=== PATIENT | male | born 1970 | race African-American/Black ===

== ENCOUNTER 2017-01-29 13:58 | Emergency (ER) | payer BC, SELFPAY ==
[2017-01-29 14:51] LABS: #Basophils 0.1 thou/uL (0.0-0.2); #Eosinphils 0.6 thou/uL (0.0-0.7); #Lymphocytes 1.9 thou/uL (1.20-3.40); #Monocytes 0.4 thou/uL (0.11-0.59); %Basophils 1.4 % (0.0-1.0); %Lymphocytes 27.2 % (21.0-51.0); %Monocytes 6.2 % (0.0-10.0); Hematocrit 41.1 % (42.0-52.0); Red Blood Cell (RBC) Count 4.22 mill/uL (4.70-6.10)
[2017-01-29 15:19] LABS: ALT (SGPT) 27 U/L (8-55); AST (SGOT) 33 U/L (5-34); Alkaline Phosphatase 83 U/L (40-150); Anion Gap 15 mmol/L (10-20); BUN (Urea Nitrogen) 14 mg/dL (8.9-20.6); Bilirubin, Total 0.5 mg/dL (0.2-1.2); CK (CPK) 1354 U/L (30-200); Calc. Creatinine Clearance 0 mL/min (70-130); Calcium 9.1 mg/dL (7.8-10.44); Carbon Dioxide 23 mmol/L (22-29); Chloride 105 mmol/L (98-107); Estimated GFR-MDRD 88; Globulin 3.8 g/dL (2.4-3.5); Protein, Total 7.8 g/dL (6.0-8.3)
[2017-01-29 15:22] LABS: Troponin I Less than 0.010 ng/mL (< 0.028)
[2017-01-29] MEDS ORDERED: Nitroglycerin 2% Ointment 1 INCH/1 GM Packet ONE (15:35)
--- NOTE | 2017-01-29 15:38 | RAD ---
CHEST 1 VIEW: Date: 01/29/17 HISTORY: Chest pain. COMPARISON: Chest 1 view dated 10/25/13. FINDINGS: Heart size is upper limits of normal. No focal air space consolidation, pneumothorax, or effusion. N o acute osseous abnormality. IMPRESSION: Mild cardiomegaly. POS: [facility]
--- NOTE | 2017-02-07 16:41 | EKG ---
Test Reason : Blood Pressure : / mmHG Vent. Rate : 081 BPM Atrial Rate : 081 BPM P-R Int : 196 ms QRS Dur : 086 ms QT Int : 378 ms P-R-T Axes : 055 023 -08 degrees QTc Int : 439 ms Normal sinus rhythm Normal ECG Confirmed by FREDIS MALIK, MICHELLE ([id number]), deputy editor in chief RALPH JI ([id number] on 02/07/2017 4:41:42 PM Referred By: Confirmed By:MICHELLE MCNEAL MD
== END 2017-01-29 17:27 | disposition home or self-care (01) ==
LOC: ERS 13:58
DX: R07.89 Other chest pain (principal); I10 Essential (primary) hypertension; J45.909 Unspecified asthma, uncomplicated
CPT/HCPCS: 71010; 80053; 82550; 82553; 83880; 84484; 85025; 93005

== ENCOUNTER 2017-02-23 04:32 | Emergency (ER) | payer SELFPAY ==
[2017-02-23] MEDS ORDERED: Acetaminophen 500 MG TAB ONE (05:23)
== END 2017-02-23 05:55 | disposition left against medical advice (07) ==
LOC: ERS 04:32
DX: Z53.21 Procedure and treatment not carried out due to patient leaving prior to being seen by health care provider (principal)

== ENCOUNTER 2017-09-18 13:42 | Emergency (ER) | payer SELFPAY ==
--- NOTE | 2017-09-18 14:57 | RAD ---
4 VIEWS LEFT ELBOW: Date: 09/18/17 COMPARISON: None. HISTORY: Left elbow pain after injuring it at work on Thursday. FINDINGS: Four views of the left elbow show no evidence of acute fracture or dislocation. Posterior soft tissue swelling is seen along the distal humerus. There may be air in this location. No degenerative change s are seen. No elbow effusion is present. IMPRESSION: Possible subcutaneous air in the soft tissues dorsal to the humerus. Correlate with an open wound in this location. POS: [facility]
== END 2017-09-18 14:50 | disposition home or self-care (01) ==
LOC: ERS 13:42
DX: M77.9 Enthesopathy, unspecified (principal); I10 Essential (primary) hypertension; J45.909 Unspecified asthma, uncomplicated
CPT/HCPCS: 99283

== ENCOUNTER 2018-11-08 06:04 | Emergency (ER) | payer SELFPAY ==
--- NOTE | 2018-11-08 07:44 | ULT ---
ULTRASOUND WITH DOPPLER DUPLEX VENOUS LOWER EXTREMITY LEFT: CPT: 06831 ICD-10-PCS: [id number] HISTORY: Pain. TECHNIQUE: Color flow Doppler, spectral waveform analysis of pulsed Doppler, and jarvis-scale imaging with lesa christoph and augmentation, were used to evaluate the bilateral common femoral, femoral, popliteal, highway design engineer ior tibial, and superficial femoral, veins; and the proximal portions of the profunda femoral and gre ater saphenous, veins. FINDINGS: There is appropriate compressibility and flow within the imaged deep vein system of the left lower ex tremity. IMPRESSION: No deep vein thrombosis. POS: [facility]
--- NOTE | 2018-11-08 08:53 | RAD ---
FOUR VIEWS LEFT KNEE: COMPARISON: 02/03/2013. HISTORY: Left knee pain and swelling. FINDINGS: Four views of the left knee show no evidence of acute fracture or dislocation. Moderate tricompartme ntal joint space narrowing and osteophyte formation is seen consistent with osteoarthritis. There is a small knee effusion. IMPRESSION: Moderate left osteoarthritis without acute osseous abnormality. POS: [facility]
== END 2018-11-08 07:31 | disposition home or self-care (01) ==
LOC: ERS 06:04
DX: M79.605 Pain in left leg (principal); I10 Essential (primary) hypertension; J45.909 Unspecified asthma, uncomplicated; F17.210 Nicotine dependence, cigarettes, uncomplicated; E11.9 Type 2 diabetes mellitus without complications; J44.9 Chronic obstructive pulmonary disease, unspecified; Z71.6 Tobacco abuse counseling
CPT/HCPCS: 99406

== ENCOUNTER 2019-09-07 06:32 | Emergency (ER) | payer OTHER, SELFPAY ==
[2019-09-07] MEDS ORDERED: Ibuprofen 800 MG TAB ONE (07:24)
== END 2019-09-07 07:35 | disposition home or self-care (01) ==
LOC: ERS 06:32
DX: J01.90 Acute sinusitis, unspecified (principal); H10.9 Unspecified conjunctivitis; E11.9 Type 2 diabetes mellitus without complications; I10 Essential (primary) hypertension; J44.9 Chronic obstructive pulmonary disease, unspecified
CPT/HCPCS: 36416; 87635; 99284; U0003

== ENCOUNTER 2021-10-30 06:03 | Emergency (ER) | payer SELFPAY | END 2021-10-30 07:40 | disposition home or self-care (01) | LOC: ERS 06:03 | DX: S39.012A Strain of muscle, fascia and tendon of lower back, initial encounter (principal); I10 Essential (primary) hypertension; X50.0XXA Overexertion from strenuous movement or load, initial encounter; Y93.F2 Activity, caregiving, lifting; Y92.65 Oil rig as the place of occurrence of the external cause | CPT/HCPCS: 99282 ==

== ENCOUNTER 2022-08-09 18:50 | Emergency (ER) | payer OTHER, SELFPAY ==
[2022-08-09 19:43] LABS: #Basophils 0.1 thou/uL (0.0-0.2); #Eosinphils 0.3 thou/uL (0.0-0.7); #Monocytes 0.5 thou/uL (0.11-0.59); #Neutrophils 4.6 thou/uL (1.40-6.50); %Basophils 0.8 % (0.0-1.0); %Eosinophils 4.1 % (0.0-10.0); %Lymphocytes 28.8 % (21.0-51.0); %Monocytes 6.8 % (0.0-10.0); Hemoglobin 12.9 g/dL (14.0-18.0); Mean Corpuscular HGB CONC 31.5 g/dL (32.0-36.0); Mean Corpuscular Hemoglobin 30.2 pg (27.0-31.0); Mean Corpuscular Volume 95.8 fl (78.0-98.0); Mean Platelet Volume 10.2 fL (7.4-10.4); Platelet Count 291 10x3/uL (130-400); RBC Distribution Width 13.1 % (11.5-14.5); Red Blood Cell (RBC) Count 4.27 mill/uL (4.70-6.10); White Blood Cell (WBC) Count 7.8 10x3/uL (4.8-10.8)
[2022-08-09] MEDS ORDERED: hydrALAZINE 20 MG/ML VIAL ONE (19:48)
[2022-08-09 20:06] LABS: ALT (SGPT) 15 U/L (8-55); AST (SGOT) 22 U/L (5-34); Albumin 4.1 g/dL (3.5-5.0); Alkaline Phosphatase 99 U/L (40-110); Anion Gap 14 mmol/L (10-20); BUN (Urea Nitrogen) 18 mg/dL (8.4-25.7); Bilirubin, Total 0.2 mg/dL (0.2-1.2); CK (CPK) 486 U/L (30-200); Calc. Creatinine Clearance 0 mL/min (70-130); Calcium 9.4 mg/dL (7.8-10.44); Carbon Dioxide 26 mmol/L (22-29); Chloride 104 mmol/L (98-107); Estimated GFR 43; Globulin 3.9 g/dL (2.4-3.5); Glucose 111 mg/dL (70-105); Potassium 3.9 mmol/L (3.5-5.1); Sodium 140 mmol/L (136-145)
[2022-08-09] MEDS ORDERED: Acetaminophen 500 MG TAB ONE (21:26)
== END 2022-08-09 21:31 | disposition home or self-care (01) ==
LOC: ERS 18:50
DX: I10 Essential (primary) hypertension (principal)
CPT/HCPCS: 71045; 80053; 82550; 83880; 84484; 85025; 93005; 96374; J0360

== ENCOUNTER 2023-03-03 19:55 | Emergency (ER) | payer OTHER ==
[2023-03-03] MEDS ORDERED: HYDROcodone/Acetaminophen 5/325 mg Tablet ONE (20:26)
[2023-03-03] MEDS ORDERED: Ketorolac Tromethamine 30 MG/ML VIAL ONE (20:26)
== END 2023-03-03 20:48 | disposition home or self-care (01) ==
LOC: ERS 19:55
DX: K43.9 Ventral hernia without obstruction or gangrene (principal); I10 Essential (primary) hypertension; Z79.899 Other long term (current) drug therapy
CPT/HCPCS: 96372; 99283; J1885

== ENCOUNTER 2023-05-02 03:53 | Emergency (ER) | payer OTHER | END 2023-05-02 05:08 | LOC: ERS 03:53 | DX: I10 Essential (primary) hypertension (principal); Z79.899 Other long term (current) drug therapy | CPT/HCPCS: 99283 ==

== ENCOUNTER 2023-08-17 18:53 | Emergency (ER) | payer OTHER ==
[2023-08-17] MEDS ORDERED: Ketorolac Tromethamine 30 MG (1 mL) VIAL ONE (19:45)
[2023-08-17 20:22] LABS: #Basophils 0.06 10x3/uL (0.0-0.2); %Basophils 0.7 % (0.0-1.0); %Eosinophils 4.3 % (0.0-10.0); %Lymphocytes 30.2 % (21.0-51.0); %Monocytes 9.5 % (0.0-10.0); %Neutrophils 54.8 % (42.0-75.0); Hematocrit 40.8 % (42.0-52.0); Hemoglobin 13.1 g/dL (14.0-18.0); Mean Corpuscular HGB CONC 32.1 g/dL (32.0-36.0); Mean Corpuscular Hemoglobin 30.5 pg (27.0-31.0); Mean Corpuscular Volume 95.1 fL (78.0-98.0); Mean Platelet Volume 10.2 fL (7.4-10.4); Platelet Count 288 10x3/uL (130-400); RBC Distribution Width 13.1 % (11.5-14.5); Red Blood Cell (RBC) Count 4.29 mill/uL (4.70-6.10)
[2023-08-17 20:43] LABS: ALT (SGPT) 13 U/L (8-55); AST (SGOT) 16 U/L (5-34); Albumin 3.2 g/dL (3.5-5.0); Alkaline Phosphatase 73 U/L (40-110); Anion Gap 12 mmol/L (10-20); BUN (Urea Nitrogen) 21 mg/dL (8.4-25.7); Bilirubin, Total 0.4 mg/dL (0.2-1.2); Calc. Creatinine Clearance 0 mL/min (70-130); Calcium 8.9 mg/dL (7.8-10.44); Carbon Dioxide 31 mmol/L (22-29); Chloride 105 mmol/L (98-107); Estimated GFR 61; Globulin 2.8 g/dL (2.4-3.5); Glucose 92 mg/dL (70-105); Lipase 69 U/L (8-78); Sodium 144 mmol/L (136-145)
[2023-08-17 22:13] LABS: Bacteria/HPF None Seen HPF (None Seen); Bilirubin Negative (Negative); Blood, Urine Negative (Negative); CAUTI Indications for Culture Pelvic or flank pain; Clarity Clear (Clear); Glucose, Urine (Dipstick) Normal (Negative); Ketone, Urine Negative (Negative); Leukocyte Negative Leu/uL (Negative); Nitrite Negative (Negative); Protein, Urine (Dipstick) Negative (Neg-Trace); RBC/HPF 0-3 HPF (0-3); Specific Gravity, Urine 1.023 (1.002-1.036); Squamous Epithelial 0-3 HPF (0-3); Urobilinogen Normal mg/dL (Less than 2); WBC/HPF 0-3 HPF (0-3); pH, Urine 6.5 (5.0-9.0)
[2023-08-17 22:17] LABS: Urine Culture Reflex No No
== END 2023-08-17 22:45 | disposition home or self-care (01) ==
LOC: ERS 18:53
DX: M25.512 Pain in left shoulder (principal); M54.6 Pain in thoracic spine; K43.9 Ventral hernia without obstruction or gangrene; I10 Essential (primary) hypertension
CPT/HCPCS: 36415; 80053; 81001; 83605; 83690; 85025; 96372; 99284; J1885

== ENCOUNTER 2023-12-31 06:20 | Emergency (ER) | payer OTHER ==
[2023-12-31] MEDS ORDERED: Acetaminophen 500 MG TAB ONE (06:42)
== END 2023-12-31 06:52 | disposition home or self-care (01) ==
LOC: ERS 06:20
DX: I10 Essential (primary) hypertension (principal)
CPT/HCPCS: 99283

== ENCOUNTER 2024-05-06 15:54 | Emergency (ER) | payer OTHER ==
[2024-05-06 16:17] LABS: #Basophils 0.06 10x3/uL (0.0-0.2); %Basophils 0.7 % (0.0-1.0); %Eosinophils 4.1 % (0.0-10.0); %Lymphocytes 25.3 % (21.0-51.0); %Monocytes 6.8 % (0.0-10.0); %Neutrophils 62.5 % (42.0-75.0); Hematocrit 41.6 % (42.0-52.0); Hemoglobin 12.9 g/dL (14.0-18.0); Mean Corpuscular Volume 96.7 fL (78.0-98.0); Mean Platelet Volume 9.8 fL (7.4-10.4); Platelet Count 264 10x3/uL (130-400); RBC Distribution Width 12.9 % (11.5-14.5)
[2024-05-06 16:30] LABS: PTT 25.4 sec (22.9-36.1)
[2024-05-06 16:35] LABS: ALT (SGPT) 14 U/L (Less than 45); AST (SGOT) 29 U/L (11-34); Albumin 3.8 g/dL (3.1-4.5); Alkaline Phosphatase 86 U/L (40-110); Anion Gap 15 mmol/L (10-20); BUN (Urea Nitrogen) 15 mg/dL (8.4-25.7); Bilirubin, Total 0.3 mg/dL (0.3-1.2); Calc. Creatinine Clearance 0 mL/min (70-130); Carbon Dioxide 27 mmol/L (22-29); Chloride 105 mmol/L (98-107); Estimated GFR 64; Globulin 3.7 g/dL (2.4-3.5); Glucose 104 mg/dL (70-105); Potassium 3.7 mmol/L (3.5-5.1); Protein, Total 7.5 g/dL (6.0-8.3); Sodium 143 mmol/L (136-145)
[2024-05-06 16:38] LABS: Troponin I 0.024 ng/mL (< 0.028)
[2024-05-06] MEDS ORDERED: Morphine 4 MG/ML VIAL ONE (16:39)
[2024-05-06] MEDS ORDERED: HYDROcodone/Acetaminophen 5/325 mg Tablet ONE (20:00)
== END 2024-05-06 20:06 | disposition home or self-care (01) ==
LOC: ERS 15:54
DX: S89.92XA Unspecified injury of left lower leg, initial encounter (principal); M54.50 Low back pain, unspecified; M17.12 Unilateral primary osteoarthritis, left knee; I10 Essential (primary) hypertension; V57.5XXA Driver of pick-up truck or van injured in collision with fixed or stationary object in traffic accident, initial encounter; Y93.89 Activity, other specified; Z55.6 Problems related to health literacy
CPT/HCPCS: 36415; 70450; 71045; 71260; 72125; 74177; 80053; 84484; 85025; 85610; 85730; 86850; 86900; 86901; 93005; 96374; J2270

== ENCOUNTER 2024-11-17 15:24 | Emergency (ER) | payer OTHER, SELFPAY ==
[2024-11-17] MEDS ORDERED: Acetaminophen 500 MG TAB ONE (16:52)
[2024-11-17] MEDS ORDERED: Ketorolac Tromethamine 30 MG (1 mL) VIAL ONE (16:52)
[2024-11-17 17:07] LABS: #Basophils 0.04 10x3/uL (0.0-0.2); #Eosinophils 0.24 10x3/uL (0.0-0.7); #Monocytes 0.48 10x3/uL (0.11-0.59); #Neutrophils 4.48 10x3/uL (1.40-6.50); %Basophils 0.6 % (0.0-1.0); %Eosinophils 3.6 % (0.0-10.0); %Lymphocytes 21.9 % (21.0-51.0); %Monocytes 7.1 % (0.0-10.0); %Neutrophils 66.4 % (42.0-75.0); Hematocrit 43.3 % (42.0-52.0); Hemoglobin 13.4 g/dL (14.0-18.0); Mean Corpuscular Hemoglobin 29.5 pg (27.0-31.0); Mean Corpuscular Volume 95.2 fL (78.0-98.0); Platelet Count 266 10x3/uL (130-400); Red Blood Cell (RBC) Count 4.55 mill/uL (4.70-6.10); White Blood Cell (WBC) Count 6.75 10x3/uL (4.8-10.8)
[2024-11-17 17:27] LABS: ALT (SGPT) 27 U/L (Less than 45); AST (SGOT) 32 U/L (11-34); Albumin 3.9 g/dL (3.1-4.5); Alkaline Phosphatase 90 U/L (40-110); Anion Gap 12 mmol/L (10-20); BUN (Urea Nitrogen) 16 mg/dL (8.4-25.7); Bilirubin, Total 0.3 mg/dL (0.3-1.2); Calc. Creatinine Clearance 0 mL/min (70-130); Calcium 8.7 mg/dL (7.8-10.44); Carbon Dioxide 27 mmol/L (22-29); Chloride 104 mmol/L (98-107); Globulin 3.6 g/dL (2.4-3.5); Glucose 103 mg/dL (70-105); Potassium 3.8 mmol/L (3.5-5.1); Sodium 139 mmol/L (136-145)
[2024-11-17 17:28] LABS: Acetaminophen Less than 10 mcg/mL (Less than 10); Salicylate Less than 8.0 mg/dL (Less than 8.0)
== END 2024-11-17 18:18 | disposition home or self-care (01) ==
LOC: ERS 15:24
DX: M54.50 Low back pain, unspecified (principal); I10 Essential (primary) hypertension; Z79.899 Other long term (current) drug therapy; V85.5XXA Driver of special construction vehicle injured in nontraffic accident, initial encounter
CPT/HCPCS: 36416; 70450; 72125; 72128; 72131; 80053; 80307; 85025; 93005; 96374; J1885